=== PATIENT | female | born 1960 | race Caucasian/White ===

== ENCOUNTER 2017-08-31 09:31 | Emergency (ER) | payer MEDICARE, BC ==
[2017-08-31] MEDS ORDERED: HYDROmorphone 1 MG/ML Syringe IVPUSH ONE (10:20)
[2017-08-31] MEDS ORDERED: cefTRIAXone 1 GM in Sodium Chloride 0.9% 50 ML IV ONE (10:20)
--- NOTE | 2017-08-31 10:24 | EDM.PDOC ---
ED HPI GENERAL MEDICAL PROBLEM - General Chief Complaint: ENT Problem Stated Complaint: RIGHT SIDE FACE VERY SWOLLEN Time Seen by Provider: 08/31/17 10:11 Source of Information: Reports: Patient, RN Notes Reviewed History Limitations: Reports: No Limitations - History of Present Illness INITIAL COMMENTS - FREE TEXT/NARRATIVE: 57-year-old female presents emergency department today complaint of dental pain with facial swelling she states she broke a tooth a couple weeks ago however over the last 24 hours she's had fevers pain and swelling however no other symptoms Right Face Pain Score (Numeric/FACES): 4 - Related Data Allergies Allergy/AdvReac Type Severity Reaction Status Date / Time codeine Allergy Other Verified 01/07/16 10:35 hydralazine HCl Allergy Swelling Verified 01/07/16 10:35 [From Apresoline] Home Meds: Home Meds Aspirin 325 mg PO DAILY 12/02/14 [History] Cholecalciferol (Vitamin D3) [Vitamin D] 2 tab PO DAILY 12/02/14 [History] Lisinopril/Hydrochlorothiazide [Zestoretic 20-12.5 mg Tablet] 2 tab PO DAILY 03/13 [History] Magnesium Oxide [Magnesium] 400 mg PO DAILY 12/02/14 [History] Metoprolol Tartrate 12.5 mg PO BID 12/02/14 [History] Pravastatin [Pravachol] 10 mg PO BEDTIME 12/02/14 [History] Sertraline [Zoloft] 50 mg PO DAILY 12/02/14 [History] Triamcinolone Acetonide [Kenalog 0.1% Crm] 1 appful TOP BID 12/02/14 [History] Vitamin B Complex [B Complex] 1 tab PO DAILY 12/02/14 [History] Ibuprofen [Advil] 800 mg PO ASDIRECTED PRN 12/05/14 [History] Liraglutide [Victoza] 1 injection SUBCUT DAILY 03/11/15 [History] Omeprazole 20 mg PO DAILY 01/07/16 [History] Past Medical History Cardiovascular History: Reports: Hypertension Other Cardiovascular History: Palpatation [employer] History: Reports: Musculoskeletal History: Reports: Other (See Below) Other Musculoskeletal History: 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, Neurological History: Reports: CVA Endocrine/Metabolic History: Reports: Diabetes, Type II - Infectious Disease History Infectious Disease History: Reports: Chicken Pox - Past Surgical History Musculoskeletal Surgical History: Reports: Hip Replacement Social & Family History - Family History Cardiac: Reports: CAD, Hypertension, [place] Neurological: Reports: Cerebral Aneurysms, CVA Endocrine/Metabolic: Reports: Diabetes, type II Oncologic: Reports: Brain, Renal Other Oncologic Family History: Gleoblastoma - Tobacco Use Smoking Status *Q: Never Smoker - Caffeine Use Caffeine Use: Reports: Coffee, Soda, Tea - Recreational Drug Use Recreational Drug Use: No ED ROS ENT - Review of Systems Review Of Systems: See Below Constitutional: Reports: Fever, Chills HEENT: Reports: Dental Pain, Sinus Problem Respiratory: Reports: No Symptoms Cardiovascular: Reports: No Symptoms GI/Abdominal: Reports: No Symptoms : Reports: No Symptoms Musculoskeletal: Reports: No Symptoms Skin: Reports: No Symptoms ED EXAM, ENT - Physical Exam Exam: See Below Text/Narrative:: General: Female, not in any distress, alert and oriented x3 HEENT: head is swelling is appreciated over the right side of the face normocephalic, eyes pupils equal round reactive to light, sclera clear no conjunctivitis appreciated. Ears tympanic membranes clear and bailey landmarks and light reflex are present bilaterally canals are clear. Nose no septal deviation, nares are clear, no blood present. Mouth mucosa is moist and pink no erythema or exudate noted in soft palate, tongue is midline uvula is midline, fractured tooth is appreciated molar number #1. Neck: Supple no thyromegaly no tracheal deviation. Nodes: Cervical nodes subclavicular nodes nontender no palpable lymphadenopathy noted. Lungs: clear to auscultation bilaterally with symmetrical respirations, no adventitious noise appreciated. CV: Regular rate and rhythm S1 and S2 appreciated no murmurs rubs or gallops noted. Abdomen: Soft, nontender, no palpable masses or organomegaly appreciated, no distention no guarding bowel sounds are present, . Course - Vital Signs Last Recorded V/S: Last Vital Signs Temp 97.8 F 08/31/17 09:48 Pulse 81 08/31/17 11:43 Resp 14 08/31/17 09:48 BP 148/85 H 08/31/17 11:43 Pulse Ox 100 08/31/17 09:48 - Orders/Labs/Meds Orders: Active Orders 24 hr Category Date Time Status Peripheral IV Care [RC] . DIRECTED Care 08/31/17 10:20 Active Sodium Chloride 0.9% [Saline Flush] Med 08/31/17 10:20 Active 10 ml FLUSH ASDIRECTED PRN Peripheral IV Insertion Adult [OM.PC] Urgent Oth 08/31/17 10:17 Ordered Medication Orders Sodium Chloride (Saline Flush) 10 ml FLUSH ASDIRECTED PRN PRN Reason: Keep Vein Open Last Admin: 08/31/17 12:44 Dose: 10 ml Admin: 08/31/17 10:54 Dose: 10 ml Meds: Medications Generic Name Dose Route Start Last Admin Trade Name Freq PRN Reason Stop Dose Admin Sodium Chloride 10 ml 08/31/17 10:20 08/31/17 12:44 Saline Flush FLUSH 10 ml ASDIRECTED PRN Administration Keep Vein Open Discontinued Medications Generic Name Dose Route Start Last Admin Trade Name Freq PRN Reason Stop Dose Admin Hydromorphone HCl 1 mg 08/31/17 10:20 08/31/17 10:47 Dilaudid IVPUSH 08/31/17 10:21 1 mg ONETIME ONE Administration Ceftriaxone Sodium 1 gm/ 50 mls @ 100 mls/hr 08/31/17 10:20 08/31/17 10:47 Sodium Chloride IV 08/31/17 10:49 100 mls/hr ONETIME ONE Administration Labetalol HCl 20 mg 08/31/17 11:30 08/31/17 12:43 Normodyne IVPUSH 08/31/17 11:31 10 mg NOW ONE Administration Protocol Departure - Departure Time of Disposition: 13:21 Disposition: Admitted As Inpatient 64 Condition: Good Clinical Impression: Dental abscess, Hypertensive urgency - Discharge Information Referrals: Jo Ann Simons NP [Primary Care Provider] - Forms: ED Department Discharge - My Orders Last 24 Hours: My Active Orders 08/31/17 10:17 Peripheral IV Insertion Adult [OM.PC] Urgent 08/31/17 10:20 Peripheral IV Care [RC] . DIRECTED Sodium Chloride 0.9% [Saline Flush] 10 ml FLUSH ASDIRECTED PRN - Assessment/Plan Last 24 Hours: My Active Orders 08/31/17 10:17 Peripheral IV Insertion Adult [OM.PC] Urgent 08/31/17 10:20 Peripheral IV Care [RC] . DIRECTED Sodium Chloride 0.9% [Saline Flush] 10 ml FLUSH ASDIRECTED PRN Plan: Assessment Acuity = acute Site and laterality = hypertensive urgency complicated patient with dental abscess Etiology = unclear etiology Manifestations = none Location of injury = Home Lab values = none Plan Discussed case with hospitalist on-call they agreed to come and evaluate the patient in the emergency department for further evaluation Patient was in agreement with the plan all questions were answered, they were instructed to return to the emergency department or call for worsening symptoms. This note was dictated using [employer] voice recognition software please call with any questions.
[2017-08-31] MEDS: Sodium Chloride 0.9% 10 ML Syringe FLUSH PRN ×2 (10:54→12:44)
[2017-08-31] MEDS: Labetalol 20 MG/4 ML Syringe IVPUSH ONE ×2 (11:34→12:43)
--- NOTE | 2017-08-31 14:09 | PCM.CONS ---
H&P History of Present Illness - General Date of Service: 08/31/17 Source of Information: Patient, Family, Provider, RN Notes Reviewed History Limitations: Reports: No Limitations - History of Present Illness Initial Comments - Free Text/Narative: Ms. Beltran is a 57-year-old woman who I been asked to see by Officer for further recommendations concerning uncontrolled hypertension. She presented to the emergency department today because of significant pain in her upper jaw secondary to an infected tooth. She had a crown on the tooth that cracked off about a week ago and began to experience significant pain in that area last night. This morning noted that the right side of her face is significantly swollen consistent with underlying infection. She has had a previous problem with significant hypertension and has experienced a CVA with residual left- sided weakness. She has noted intermittent dull headaches over the past 2 months and when checked at home her blood pressure has been elevated. When she arrived in the emergency department blood pressure was significantly elevated with systolic pressure over 200 and a diastolic pressure 120. She is received medication and pressures have improved but still remain elevated when I saw her systolic pressure was 170 with a diastolic of 100. She denies any symptoms of chest pain or pressure and has not had shortness of breath or any new neurologic symptoms other than the intermittent dull headache. Right Face Pain Score (Numeric/FACES): 4 - Related Data Allergies/Adverse Reactions: Allergies Allergy/AdvReac Type Severity Reaction Status Date / Time codeine Allergy Other Verified 01/07/16 10:35 hydralazine HCl Allergy Swelling Verified 01/07/16 10:35 [From Apresoline] Home Medications: Home Meds Aspirin 325 mg PO DAILY 12/02/14 [History] Cholecalciferol (Vitamin D3) [Vitamin D] 2 tab PO DAILY 12/02/14 [History] Lisinopril/Hydrochlorothiazide [Zestoretic 20-12.5 mg Tablet] 2 tab PO DAILY 03/13 [History] Magnesium Oxide [Magnesium] 400 mg PO DAILY 12/02/14 [History] Metoprolol Tartrate 12.5 mg PO BID 12/02/14 [History] Pravastatin [Pravachol] 10 mg PO BEDTIME 12/02/14 [History] Sertraline [Zoloft] 50 mg PO DAILY 12/02/14 [History] Triamcinolone Acetonide [Kenalog 0.1% Crm] 1 appful TOP BID 12/02/14 [History] Vitamin B Complex [B Complex] 1 tab PO DAILY 12/02/14 [History] Ibuprofen [Advil] 800 mg PO ASDIRECTED PRN 12/05/14 [History] Liraglutide [Victoza] 1 injection SUBCUT DAILY 03/11/15 [History] Omeprazole 20 mg PO DAILY 01/07/16 [History] Past Medical History Cardiovascular History: Reports: Hypertension Other Cardiovascular History: Palpatation [employer] History: Reports: Musculoskeletal History: Reports: Other (See Below) Other Musculoskeletal History: 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, Neurological History: Reports: CVA Endocrine/Metabolic History: Reports: Diabetes, Type II - Infectious Disease History Infectious Disease History: Reports: Chicken Pox - Past Surgical History Musculoskeletal Surgical History: Reports: Hip Replacement Social & Family History - Family History Cardiac: Reports: CAD, Hypertension, [place] Neurological: Reports: Cerebral Aneurysms, CVA Endocrine/Metabolic: Reports: Diabetes, type II Oncologic: Reports: Brain, Renal Other Oncologic Family History: Gleoblastoma - Tobacco Use Smoking Status *Q: Never Smoker - Caffeine Use Caffeine Use: Reports: Coffee, Soda, Tea - Recreational Drug Use Recreational Drug Use: No H&P Review of Systems - Review of Systems: Review Of Systems: See Below General: Denies: Fever, Chills, Weakness HEENT: Reports: Headaches, Other (Dental infection and pain) Pulmonary: Reports: No Symptoms Cardiovascular: Reports: Palpitations. Denies: Chest Pain, Dyspnea on Exertion , Orthopnea, PND, Edema, Lightheadedness Gastrointestinal: Reports: No Symptoms Genitourinary: Reports: No Symptoms Musculoskeletal: Reports: No Symptoms Skin: Reports: No Symptoms Psychiatric: Reports: No Symptoms Neurological: Reports: Headache, Pre-Existing Deficit Hematologic/Lymphatic: Reports: No Symptoms Immunologic: Reports: No Symptoms Exam - Exam Exam: See Below - Vital Signs Vital Signs: Last Vital Signs Temp 97.8 F 08/31/17 09:48 Pulse 81 08/31/17 11:43 Resp 14 08/31/17 09:48 BP 177/93 H 08/31/17 13:57 Pulse Ox 100 08/31/17 09:48 Weight: 196 lb 6.91 oz - Exam General: Alert, Oriented, Cooperative, Mild Distress Neck: Supple, Trachea Midline, +2 Carotid Pulse wo Bruit Lungs: Clear to Auscultation, Normal Respiratory Effort Cardiovascular: Regular Rate, Regular Rhythm, Normal S1, Normal S2. No: Irregular Rhythm, Bradycardia, Tachycardia, Systolic Murmur, Diastolic Murmur GI/Abdominal Exam: Soft, Non-Tender, No Organomegaly, No Distention Extremities: Non-Tender, No Pedal Edema Skin: Warm, Dry Neuro Extensive - Mental Status: Alert, Normal Mood/Affect, Normal Cognition, Memory Intact Consult PN Assessment/Plan Procedures: Procedures CARDIOVASCULAR STRESS TEST (12/05/14) COMP SCREEN MAMMOGRAM ADD-ON (04/10/16) ECG/MONITORING AND ANALYSIS (10/13/14) EMERGENCY DEPT VISIT (01/07/16) HOT OR COLD PACKS THERAPY (03/30/14) HT MUSCLE IMAGE SPECT MULT (12/05/14) IMMUNIZATION ADMIN (03/11/15) MANUAL THERAPY 1/> REGIONS (02/22/16) NEUROMUSCULAR REEDUCATION (02/22/16) ORTHOTIC MGMT AND TRAINING (03/30/14) OT EVAL LOW COMPLEX 30 MIN (07/29/17) PT EVAL LOW COMPLEX 20 MIN (07/29/17) PT EVALUATION (01/26/16) RABIES IG HEAT TREATED (03/11/15) RABIES VACCINE IM (03/11/15) REMOTE 30 DAY ECG REV/REPORT (10/13/14) THER/PROPH/DIAG INJ SC/IM (03/11/15) THERAPEUTIC ACTIVITIES (08/26/17) THERAPEUTIC EXERCISES (08/26/17) ULTRASOUND THERAPY (02/22/16) (1) Dental abscess SNOMED Code(s): 425744665 Code(s): K04.7 - PERIAPICAL ABSCESS WITHOUT SINUS Current Visit: Yes (2) Hypertensive urgency SNOMED Code(s): 248345096 Code(s): I16.0 - HYPERTENSIVE URGENCY Current Visit: Yes Problem List Initiated/Reviewed/Updated: Yes My Orders Last 24 Hours: My Active Orders 08/31/17 14:03 Metoprolol Tartrate [Lopressor] 50 mg PO ONETIME ONE Plan: ASSESSMENT AND RECOMMENDATIONS UNCONTROLLED HYPERTENSION-history of blood pressure elevation for some time, previously controlled on current therapy. Now over the past 2 months is noted blood pressures have been trending upward often running in the 160-170 range systolic and in the 90s diastolic. She is currently on lisinopril 40 mg per day , hydrochlorothiazide 25 mg per day, and metoprolol 25 mg per day. Rather than starting a fourth medication I would favor increasing current dose of metoprolol , heart rate is in the range of 80-90 so I suspect that she should tolerate this well without significant bradycardia. -Metoprolol 50 mg by mouth now -Metoprolol 25 mg by mouth every 6 hours over the next 2 days -On September 03, change metoprolol dosing to 50 mg twice daily. -Monitor blood pressures at least twice a day and record for follow-up with primary care -Follow-up with primary care within 3-5 days -Continue current dosing of lisinopril and hydrochlorothiazide -Return to emergency department if blood pressures remain greater than 180 systolic or 100 diastolic ABSCESSED TOOTH-agree with current plan per Officer Requesting Provider: TO Date Consult Requested: 08/31/17 Reason for Consult: Uncontrolled hypertension Patient History Reviewed: Yes Notified Requestor: Yes
[2017-08-31] MEDS ORDERED: Metoprolol Tartrate 50 MG Tab PO ONE (14:10)
[2017-08-31 14:23] VITALS: BP 169/96
== END 2017-08-31 14:20 | disposition critical access hospital (66) ==
LOC: JP.ED 09:31
DX: I16.0 Hypertensive urgency (principal); K04.7 Periapical abscess without sinus; E11.9 Type 2 diabetes mellitus without complications; Z88.5 Allergy status to narcotic agent; Z88.8 Allergy status to other drugs, medicaments and biological substances; I10 Essential (primary) hypertension
CPT/HCPCS: 96365; 96375; 99284; A9270; J0696; J1170; J7050

== ENCOUNTER 2017-12-24 10:05 | Day surgery (SDC) | payer MEDICARE, BC ==
[2017-12-24] MEDS ORDERED: Lactated Ringers 1,000 ML IV SCH (10:30)
[2017-12-24] MEDS ORDERED: Midazolam 1 MG/ML 2 ML SDV ONE (11:50)
[2017-12-24] MEDS ORDERED: fentaNYL 100 MCG/2 ML SDV ONE (11:50)
[2017-12-24] MEDS ORDERED: Propofol 200 MG/20 ML SDV ONE (11:50)
[2017-12-24 14:07] VITALS: BP 138/83
--- NOTE | 2017-12-25 09:38 | OR ---
DATE OF PROCEDURE: 12/24/2017 PREOPERATIVE DIAGNOSIS: Colon cancer screening. POSTOPERATIVE DIAGNOSIS: Diverticulosis. PROCEDURE: Colonoscopy to the cecum. SURGEON: Cecil Mcdonald MD. MANAGER LANDSCAPE: Lucía Neil MS-3. ANESTHESIA: IV anesthesia with monitored anesthesia care. INDICATION: This 57-year-old white female is referred for a colonoscopy for colon cancer screening. She has never had a colonoscopic exam. I counseled her for the procedure, including risks and alternatives, and she gave her informed consent to proceed. DESCRIPTION OF PROCEDURE: The patient was placed in the left lateral decubitus position. IV anesthesia was administered by the Anesthesia Service. Time-out was held. A rectal exam was performed, which was unremarkable. The flexible video Olympus colonoscope was introduced through her anus, up her rectum, and out her colon all the way to the cecum. En route, we saw a few scattered left-sided diverticula. There was no bleeding or inflammation associated with any of them. Once the cecum was reached, the scope was slowly withdrawn, examining the mucosa throughout. No additional mucosal abnormalities were noted. The scope was retroflexed in the rectum with the distal rectum appearing unremarkable. The scope was straightened and removed. She tolerated the procedure well. Cecil Mcdonald MD /[id number]
== END 2017-12-24 14:20 | disposition home or self-care (01) ==
LOC: JP.SDS 10:05
PROVIDERS: ATTEND Surgery
DX: Z12.11 Encounter for screening for malignant neoplasm of colon (principal); K57.30 Diverticulosis of large intestine without perforation or abscess without bleeding; I10 Essential (primary) hypertension; E78.5 Hyperlipidemia, unspecified; E11.9 Type 2 diabetes mellitus without complications; F17.200 Nicotine dependence, unspecified, uncomplicated; Z88.1 Allergy status to other antibiotic agents; Z88.8 Allergy status to other drugs, medicaments and biological substances
CPT/HCPCS: G0121; J2250; J2704; J3010; J7120

== ENCOUNTER 2020-10-25 18:49 | Emergency (ER) | payer MEDICARE ==
--- NOTE | 2020-10-25 19:29 | EDM.PDOC ---
ED HPI GENERAL MEDICAL PROBLEM - General Chief Complaint: Respiratory Problem Stated Complaint: SOB,FEVER Time Seen by Provider: 10/25/20 19:15 Source of Information: Reports: Patient, Family, RN Notes Reviewed History Limitations: Reports: No Limitations - History of Present Illness INITIAL COMMENTS - FREE TEXT/NARRATIVE: 60-year-old female presents emergency department a complaint of shortness of breath and cough as well as low-grade fevers she recently returned from [place] and has been feeling ill for the last 3 days. Concerned about Covid no known exposures - Related Data Allergies Allergy/AdvReac Type Severity Reaction Status Date / Time atorvastatin Allergy Cannot Verified 10/25/20 18:59 Remember codeine Allergy Other Verified 10/25/20 18:59 erythromycin base Allergy Joint Pain Verified 10/25/20 18:59 [From Staticin] ethyl alcohol [From Staticin] Allergy Joint Pain Verified 10/25/20 18:59 hydralazine HCl Allergy Swelling Verified 10/25/20 18:59 [From Apresoline] pravastatin Allergy Joint Pain Verified 10/25/20 18:59 Home Meds: Home Meds Aspirin 325 mg PO DAILY 12/02/14 [History] Cholecalciferol (Vitamin D3) [Vitamin D] 4,000 unit PO DAILY 12/02/14 [History] Magnesium Oxide [Magnesium] 400 mg PO DAILY 12/02/14 [History] Metoprolol Tartrate 50 mg PO BID 12/02/14 [History] Sertraline [Zoloft] 50 mg PO DAILY 12/02/14 [History] Triamcinolone Acetonide [Kenalog 0.1% Crm] 1 appful TOP BID PRN 12/02/14 [History] Vitamin B Complex [B Complex] 1 tab PO DAILY 12/02/14 [History] Rosuvastatin [Crestor] 5 mg PO DAILY 12/23/17 [History] amLODIPine [Norvasc] 5 mg PO DAILY 12/23/17 [History] metFORMIN [Glucophage XR] 1,000 mg PO BID 12/23/17 [History] Acetaminophen [Tylenol Extra Strength] 1,000 mg PO Q6H PRN 09/05/20 [History] Calcium Carbonate/Vitamin D3 [Calcium 500 + Vit D 400] 1 tab PO DAILY 09/05/20 [History] Insulin Aspart [NovoLOG] 8 units SQ DAILY 09/05/20 [History] Albuterol Sulfate [Albuterol Sulfate Hfa] 1 puff IH ASDIRECTED 10/25/20 [History] lisinopriL [Lisinopril] 40 mg PO DAILY 10/25/20 [History] Past Medical History HEENT History: Reports: Impaired Vision Cardiovascular History: Reports: High Cholesterol, Hypertension Other Cardiovascular History: Palpatation LABEL PINKER History: Reports: , Spontaneous Musculoskeletal History: Reports: Fracture, Other (See Below) Other Musculoskeletal History: 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 left humerus FX 08/12/20 Neurological History: Reports: CVA Psychiatric History: Reports: Depression Endocrine/Metabolic History: Reports: Diabetes, Type II, Obesity/BMI 30+ Hematologic History: Reports: Blood Transfusion(s) - Infectious Disease History Infectious Disease History: Reports: Chicken Pox, Mumps, Other (See Below) Other Infectious Disease History: mumps - Past Surgical History Head Surgeries/Procedures: Reports: None HEENT Surgical History: Reports: Laser Surgery Cardiovascular Surgical History: Reports: Other (See Below) Other Cardiovascular Surgeries/Procedures: Angiogram Endocrine Surgical History: Reports: None Neurological Surgical History: Reports: None Musculoskeletal Surgical History: Reports: Hip Replacement, Shoulder Surgery Other Musculoskeletal Surgeries/Procedures:: Total R. Hip Dermatological Surgical History: Reports: None Social & Family History - Family History HEENT: Reports: Glaucoma Cardiac: Reports: Aneurysm, CAD, Heart Failure, High Cholesterol, Hypertension, CA Musculoskeletal: Reports: Arthritis, Osteoarthritis Neurological: Reports: Cerebral Aneurysms, CVA Endocrine/Metabolic: Reports: Diabetes, type II, Hypothyroidism, Obesity/MBI 30+ Oncologic: Reports: Brain, Colon, Prostate, Renal Other Oncologic Family History: Gleoblastoma - Tobacco Use Tobacco Use Status *Q: Former Tobacco User Used Tobacco, but Quit: Yes Month/Year Tobacco Last Used: 2009 Second Hand Smoke Exposure: No - Caffeine Use Caffeine Use: Reports: Soda - Recreational Drug Use Recreational Drug Use: No ED ROS GENERAL - Review of Systems Review Of Systems: See Below Constitutional: Reports: Fever, Chills HEENT: Reports: No Symptoms Respiratory: Reports: Shortness of Breath, Cough. Denies: Sputum Cardiovascular: Reports: Dyspnea on Exertion GI/Abdominal: Reports: No Symptoms : Reports: No Symptoms ED EXAM, GENERAL - Physical Exam Exam: See Below Exam Limited By: No Limitations General Appearance: Alert, WD/WN, No Apparent Distress Respiratory/Chest: No Respiratory Distress, Lungs Clear, Normal Breath Sounds, No Accessory Muscle Use, Chest Non-Tender Cardiovascular: Regular Rate, Rhythm, No Murmur GI/Abdominal: Soft, Non-Tender Course - Vital Signs Last Recorded V/S: Last Vital Signs Temp 98.5 F 10/25/20 19:03 Pulse 66 10/25/20 20:19 Resp 18 10/25/20 19:03 BP 141/74 H 10/25/20 20:19 Pulse Ox 96 10/25/20 19:30 - Orders/Labs/Meds Orders: Active Orders 24 hr Category Date Time Status Nurse Communication: Isolation [RC] ASDIRECTED Care 10/25/20 19:27 Active Chest 1V Frontal [CR] Stat Exams 10/25/20 19:27 Taken Isolation [COMM] Stat Oth 10/25/20 19:26 Ordered Labs: Laboratory Tests 10/25/20 10/25/20 10/25/20 Range/Units 19:10 19:42 19:42 WBC 12.3 H (4.5-11.0) K/uL RBC 4.05 (3.30-5.50) M/uL Hgb 12.5 (12.0-15.0) g/dL Hct 36.3 (36.0-48.0) % MCV 90 (80-98) fL MCH 31 (27-31) pg MCHC 34 (32-36) % Plt Count 319 (150-400) K/uL Neut % (Auto) 65 (36-66) % Lymph % (Auto) 25 (24-44) % [place] % (Auto) 7 H (2-6) % Eos % (Auto) 3 (2-4) % Baso % (Auto) 0 (0-1) % PT (9.5-12.0) sec INR (0.80-1.20) Sodium (140-148) mmol/L Potassium (3.6-5.2) mmol/L Chloride (100-108) mmol/L Carbon Dioxide (21-32) mmol/L Anion Gap (5.0-14.0) mmol/L BUN (7-18) mg/dL Creatinine (0.6-1.0) mg/dL Est Cr Clr Drug Dosing mL/min Estimated GFR (MDRD) (>60) Glucose (74-106) mg/dL Lactic Acid (0.4-2.0) mmol/L Calcium (8.5-10.1) mg/dL Ferritin 64 (8-388) ng/ml Total Bilirubin (0.2-1.0) mg/dL Direct Bilirubin (0.0-0.2) mg/dL Indirect Bilirubin AST (15-37) U/L ALT (12-78) U/L Alkaline Phosphatase (46-116) U/L Lactate Dehydrogenase (82-234) U/L C-Reactive Protein (0.0-0.3) mg/dL Total Protein (6.4-8.2) g/dL Albumin (3.4-5.0) g/dL Globulin (2.3-3.5) g/dL Albumin/Globulin Ratio (1.2-2.2) Procalcitonin ng/mL Influenza Type A RNA Negative (NEGATIVE) RSV RNA (INAAT) Negative (NEGATIVE) Influenza Type B RNA Negative (NEGATIVE) SARS-CoV-2 RNA (GRETCHEN) Negative (NEGATIVE) 10/25/20 10/25/20 10/25/20 Range/Units 19:42 19:42 19:42 WBC (4.5-11.0) K/uL RBC (3.30-5.50) M/uL Hgb (12.0-15.0) g/dL Hct (36.0-48.0) % MCV (80-98) fL MCH (27-31) pg MCHC (32-36) % Plt Count (150-400) K/uL Neut % (Auto) (36-66) % Lymph % (Auto) (24-44) % [place] % (Auto) (2-6) % Eos % (Auto) (2-4) % Baso % (Auto) (0-1) % PT (9.5-12.0) sec INR (0.80-1.20) Sodium 136 L (140-148) mmol/L Potassium 4.3 (3.6-5.2) mmol/L Chloride 98 L (100-108) mmol/L Carbon Dioxide 26 (21-32) mmol/L Anion Gap 16.3 H (5.0-14.0) mmol/L BUN 13 (7-18) mg/dL Creatinine 1.3 H (0.6-1.0) mg/dL Est Cr Clr Drug Dosing 40.38 mL/min Estimated GFR (MDRD) 42 L (>60) Glucose 334 H (74-106) mg/dL Lactic Acid 2.3 H (0.4-2.0) mmol/L Calcium 9.3 (8.5-10.1) mg/dL Ferritin (8-388) ng/ml Total Bilirubin 1.3 H (0.2-1.0) mg/dL Direct Bilirubin 0.22 H (0.0-0.2) mg/dL Indirect Bilirubin 1.08 AST 16 (15-37) U/L ALT 34 (12-78) U/L Alkaline Phosphatase 79 (46-116) U/L Lactate Dehydrogenase 190 (82-234) U/L C-Reactive Protein 1.33 H (0.0-0.3) mg/dL Total Protein 7.4 (6.4-8.2) g/dL Albumin 3.7 (3.4-5.0) g/dL Globulin 3.7 H (2.3-3.5) g/dL Albumin/Globulin Ratio 1.0 L (1.2-2.2) Procalcitonin < 0.05 ng/mL Influenza Type A RNA (NEGATIVE) RSV RNA (INAAT) (NEGATIVE) Influenza Type B RNA (NEGATIVE) SARS-CoV-2 RNA (GRETCHEN) (NEGATIVE) 10/25/20 Range/Units 19:42 WBC (4.5-11.0) K/uL RBC (3.30-5.50) M/uL Hgb (12.0-15.0) g/dL Hct (36.0-48.0) % MCV (80-98) fL MCH (27-31) pg MCHC (32-36) % Plt Count (150-400) K/uL Neut % (Auto) (36-66) % Lymph % (Auto) (24-44) % [place] % (Auto) (2-6) % Eos % (Auto) (2-4) % Baso % (Auto) (0-1) % PT 10.4 (9.5-12.0) sec INR 0.95 (0.80-1.20) Sodium (140-148) mmol/L Potassium (3.6-5.2) mmol/L Chloride (100-108) mmol/L Carbon Dioxide (21-32) mmol/L Anion Gap (5.0-14.0) mmol/L BUN (7-18) mg/dL Creatinine (0.6-1.0) mg/dL Est Cr Clr Drug Dosing mL/min Estimated GFR (MDRD) (>60) Glucose (74-106) mg/dL Lactic Acid (0.4-2.0) mmol/L Calcium (8.5-10.1) mg/dL Ferritin (8-388) ng/ml Total Bilirubin (0.2-1.0) mg/dL Direct Bilirubin (0.0-0.2) mg/dL Indirect Bilirubin AST (15-37) U/L ALT (12-78) U/L Alkaline Phosphatase (46-116) U/L Lactate Dehydrogenase (82-234) U/L C-Reactive Protein (0.0-0.3) mg/dL Total Protein (6.4-8.2) g/dL Albumin (3.4-5.0) g/dL Globulin (2.3-3.5) g/dL Albumin/Globulin Ratio (1.2-2.2) Procalcitonin ng/mL Influenza Type A RNA (NEGATIVE) RSV RNA (INAAT) (NEGATIVE) Influenza Type B RNA (NEGATIVE) SARS-CoV-2 RNA (GRETCHEN) (NEGATIVE) Departure - Departure Time of Disposition: 21:32 Disposition: Home, Self-Care 01 Condition: Fair Clinical Impression: Viral syndrome - Discharge Information Instructions: Upper Respiratory Infection, Adult, [id number] Referrals: PCP,None [Primary Care Provider] - Forms: ED Department Discharge Additional Instructions: Continue symptomatic care try the Tessalon Perles to help as a cough suppressant, please followup with your primary care provider in 3-5 days if not better, please call return to the emergency department with worsening of symptoms. Sepsis Event Note (ED) - Evaluation Sepsis Screening Result: No Definite Risk - Focused Exam Vital Signs: Vital Signs Temp Pulse Resp BP Pulse Ox 10/25/20 20:19 66 141/74 H 10/25/20 19:30 71 161/49 H 96 10/25/20 19:03 98.5 F 85 18 192/89 H 97 10/25/20 19:01 98.5 F 85 18 192/89 H 97 - My Orders Last 24 Hours: My Active Orders 10/25/20 19:26 Isolation [COMM] Stat 10/25/20 19:27 Nurse Communication: Isolation [RC] ASDIRECTED Chest 1V Frontal [CR] Stat - Assessment/Plan Last 24 Hours: My Active Orders 10/25/20 19:26 Isolation [COMM] Stat 10/25/20 19:27 Nurse Communication: Isolation [RC] ASDIRECTED Chest 1V Frontal [CR] Stat Plan: Assessment Acuity = acute Site and laterality = viral syndrome Etiology = unknown Manifestations = cough Location of injury = Home Lab values = WBC elevated 12.3 consistent leukocytosis, sodium low at 136 consistent hyponatremia creatinine elevated 1.3 consistent chronic renal failure stage G3 B glucose elevated 334 consistent with hyperglycemia lactic acid sl ightly elevated 2.3 consistent with lactic acidosis total bilirubin elevated 1.3 consistent with hyperbilirubinemia Covid RSV and influenza are all negative chest x-ray shows no acute process patient read radiologist pending Plan I did review lab work chest x-ray results with her we will try Tessalon Perles 200 mg p.o. 3 times daily as needed follow-up with her primary care in the next 3 to 5 days if not better This note was dictated using [employer] voice recognition software please call with any questions on syntax or grammar.
[2020-10-25 20:20] VITALS: BP 141/74; PULSE 66
[2020-10-25 20:35] LABS: CORONAVIRUS COVID-19 NAA NEGATIVE (NEGATIVE)
--- NOTE | 2020-10-26 08:46 | CR ---
CHEST: Portable 10/25/2020 at 7:54 PM CLINICAL HISTORY:Respiratory failure COMPARISON:None FINDINGS: The heart size, pulmonary vascularity and hilar structures are normal. No infiltrate effusion or pneumothorax is seen. There is a previous fracture of the left proximal humerus IMPRESSION: No acute cardiopulmonary process.
== END 2020-10-25 21:38 | disposition home or self-care (01) ==
LOC: JP.ED 18:49
DX: B34.9 Viral infection, unspecified (principal); E78.00 Pure hypercholesterolemia, unspecified; I10 Essential (primary) hypertension; E11.9 Type 2 diabetes mellitus without complications; E66.9 Obesity, unspecified; Z68.35 Body mass index [BMI] 35.0-35.9, adult; Z87.891 Personal history of nicotine dependence; Z88.8 Allergy status to other drugs, medicaments and biological substances; Z88.5 Allergy status to narcotic agent; Z88.1 Allergy status to other antibiotic agents; Z79.82 Long term (current) use of aspirin; Z79.4 Long term (current) use of insulin; Z79.899 Other long term (current) drug therapy; Z20.822 Contact with and (suspected) exposure to COVID-19
CPT/HCPCS: 0241U; 36415; 71045; 71045-26; 80048; 80076; 82728; 83605; 83615; 84145; 85025; 85610; 86140; 99285-25

== ENCOUNTER 2023-04-23 12:11 | Inpatient (IN) | payer MEDICARE ==
[2023-04-23] MEDS ORDERED: Sodium Chloride 0.9% 10 ML Syringe FLUSH PRN (12:42)
[2023-04-23] MEDS ORDERED: Ondansetron 4 MG/2 ML SDV IVPUSH PRN (12:42)
[2023-04-23] MEDS ORDERED: Glucagon,Human Recombinant 1 MG Vial IM PRN (12:49)
[2023-04-23] MEDS ORDERED: 50% Dextrose in Water 50 ML Syringe IVPUSH PRN (12:49)
[2023-04-23 13:00] LABS: BASOPHILS ABSOLUTE AUTO 0.03 K/uL (0.00-0.10); BASOPHILS PERCENT AUTO 0.3 % (0.1-1.3); EOSINOPHILS ABSOLUTE AUTO 0.22 K/uL (0.00-0.40); EOSINOPHILS PERCENT AUTO 2.3 % (0.0-5.4); HEMATOCRIT 38.6 % (34.3-46.0); HEMOGLOBIN 13.6 g/dL (11.2-15.5); IMMATURE GRAN ABSOLUTE AUTO 0.03 K/uL (0.00-0.23); IMMATURE GRAN PERCENT AUTO 0.3 % (0.0-0.7); LYMPHOCYTES ABSOLUTE AUTO 3.63 K/uL (0.8-3.3); MEAN CORPUSCULAR HEMOGLOBIN 30.8 pg (31.6-35.5); MEAN CORPUSCULAR HGB CONC 35.2 g/dL (31.6-35.5); MEAN CORPUSCULAR VOLUME 87.3 fL (81.4-99.0); MONOCYTES ABSOLUTE AUTO 0.57 K/uL (0.20-0.90); NEUTROPHILS ABSOLUTE AUTO 5.07 K/uL (1.0-7.6); NEUTROPHILS PERCENT AUTO 53.1 % (40.0-78.1); PLATELET COUNT,PLT 270 K/uL (130-375); RED BLOOD CELL COUNT 4.42 M/uL (3.77-5.24); WHITE BLOOD CELL COUNT,WBC 9.6 K/uL (3.2-11.0)
[2023-04-23 13:37] LABS: PROTHROMBIN TIME 10.2 sec (9.2-10.6)
[2023-04-23 13:43] LABS: ALANINE AMINOTRANSFERASE,ALT 42 U/L (12-78); ALBUMIN 3.5 g/dL (3.4-5.0); ALKALINE PHOSPHATASE 56 U/L (46-116); ANION GAP 10.2 mmol/L (5.0-14.0); ASPARTATE AMNIOTRANSFERASE,AST 32 U/L (15-37); BILIRUBIN TOTAL 1.4 mg/dL (0.2-1.0); BLOOD UREA NITROGEN,BUN 10 mg/dL (7-18); CARBON DIOXIDE,CO2 27 mmol/L (21-32); CHLORIDE,CL 103 mmol/L (100-108); ESTIMATED GFR 63 mL/min (>60); GLUCOSE RANDOM 96 mg/dL (74-106); POTASSIUM,K 3.9 mmol/L (3.6-5.2); SODIUM,NA 140 mmol/L (140-148)
[2023-04-23 13:44] LABS: MAGNESIUM 1.6 mg/dL (1.8-2.4); PHOSPHORUS 3.8 mg/dL (2.5-4.9)
[2023-04-23] MEDS: Acetaminophen 325 MG Tab PO SCH ×2 (14:07→22:29)
[2023-04-23] MEDS: Lactated Ringers 1,000 ML IV SCH ×2 (14:07→22:20)
[2023-04-23] MEDS: Piperacillin/Tazobactam/Dext 3.375 GM in Premix Bag 1 BAG IV SCH ×2 (14:09→20:14)
[2023-04-23] MEDS ORDERED: Magnesium Sulfate/Water 2 GM in Premix Bag 1 BAG IV ONE (15:00)
[2023-04-23] MEDS ORDERED: Enoxaparin 40 MG/0.4 ML Syringe SUBCUT ONE (16:00)
[2023-04-23] MEDS ORDERED: Glimepiride 2 MG Tab PO SCH (17:00)
[2023-04-23] MEDS: Insulin Lispro 100 Unit/ML 3 ML KwikPen SUBCUT SCH ×2 (17:35→22:27)
[2023-04-23] MEDS: Metoprolol Tartrate 50 MG Tab PO SCH (20:11)
[2023-04-24] MEDS: Piperacillin/Tazobactam/Dext 3.375 GM in Premix Bag 1 BAG IV SCH ×3 (01:31→20:33)
[2023-04-24 04:38] LABS: HEMATOCRIT 34.4 % (34.3-46.0); MEAN CORPUSCULAR HEMOGLOBIN 30.8 pg (31.6-35.5); MEAN CORPUSCULAR HGB CONC 34.9 g/dL (31.6-35.5); MEAN CORPUSCULAR VOLUME 88.4 fL (81.4-99.0); RED BLOOD CELL COUNT 3.89 M/uL (3.77-5.24); WHITE BLOOD CELL COUNT,WBC 8.2 K/uL (3.2-11.0)
[2023-04-24 05:04] LABS: ALANINE AMINOTRANSFERASE,ALT 36 U/L (12-78); ALBUMIN 3.1 g/dL (3.4-5.0); ALKALINE PHOSPHATASE 46 U/L (46-116); ASPARTATE AMNIOTRANSFERASE,AST 28 U/L (15-37); BILIRUBIN TOTAL 1.4 mg/dL (0.2-1.0); BLOOD UREA NITROGEN,BUN 8 mg/dL (7-18); CALCIUM 8.8 mg/dL (8.5-10.1); CARBON DIOXIDE,CO2 27 mmol/L (21-32); CHLORIDE,CL 105 mmol/L (100-108); CREATININE 1.1 mg/dL (0.6-1.0); EST CRCL DRUG DOSING (CG) 46.49 mL/min; ESTIMATED GFR 56 mL/min (>60); GLUCOSE RANDOM 110 mg/dL (74-106); POTASSIUM,K 3.5 mmol/L (3.6-5.2); PROTEIN TOTAL,TP 6.2 g/dL (6.4-8.2); SODIUM,NA 143 mmol/L (140-148)
[2023-04-24 05:13] LABS: ANION GAP 14.5 mmol/L (5.0-14.0); MAGNESIUM 2.1 mg/dL (1.8-2.4); PHOSPHORUS 4.3 mg/dL (2.5-4.9)
[2023-04-24] MEDS ORDERED: Indocyanine Green 25 MG SDV IV ONE ×2 (06:00→07:30)
[2023-04-24] MEDS ORDERED: Bupivacaine 0.5%/EPINEPHrine 1:200,000 50 ML MDV ONE (06:47)
[2023-04-24] MEDS: Lactated Ringers 1,000 ML IV SCH ×2 (07:10→23:11)
[2023-04-24] MEDS: Acetaminophen 325 MG Tab PO SCH ×3 (07:29→21:21)
[2023-04-24] MEDS: Metoprolol Tartrate 50 MG Tab PO SCH (08:19)
[2023-04-24] MEDS: Potassium Chloride 10 MEQ in Premix Bag 1 BAG IV SCH ×2 (08:23→10:46)
[2023-04-24] MEDS ORDERED: Glimepiride 2 MG Tab PO SCH (09:00)
[2023-04-24] MEDS ORDERED: fentaNYL 250 MCG/5 ML SDV ONE (11:09)
[2023-04-24] MEDS ORDERED: Propofol 200 MG/20 ML SDV ONE (11:10)
[2023-04-24] MEDS ORDERED: Ondansetron 4 MG/2 ML SDV ONE (11:10)
[2023-04-24] MEDS ORDERED: Neostigmine Methylsulfate 1 MG/ML 5 ML Syringe ONE (11:10)
[2023-04-24] MEDS ORDERED: Rocuronium 50 MG/5 ML Vial ONE ×2 (11:10→14:15)
[2023-04-24] MEDS ORDERED: Dexamethasone 4 MG/ML SDV ONE (11:10)
[2023-04-24] MEDS ORDERED: Glycopyrrolate 0.2 MG/ML 5 ML MDV ONE (11:10)
[2023-04-24] MEDS: Insulin Lispro 100 Unit/ML 3 ML KwikPen SUBCUT SCH ×3 (12:23→21:22)
[2023-04-24] MEDS ORDERED: Lactated Ringers 1,000 ML ONE ×2 (13:22→15:35)
[2023-04-24 16:24] LABS: HEMATOCRIT 31.4 % (34.3-46.0); HEMOGLOBIN 10.9 g/dL (11.2-15.5); MEAN CORPUSCULAR HEMOGLOBIN 31.2 pg (31.6-35.5); MEAN CORPUSCULAR HGB CONC 34.7 g/dL (31.6-35.5); RED BLOOD CELL COUNT 3.49 M/uL (3.77-5.24); WHITE BLOOD CELL COUNT,WBC 13.5 K/uL (3.2-11.0)
[2023-04-24 16:41] LABS: INR 1.1
[2023-04-24 16:45] LABS: ALANINE AMINOTRANSFERASE,ALT 57 U/L (12-78); ALBUMIN 2.9 g/dL (3.4-5.0); ALKALINE PHOSPHATASE 45 U/L (46-116); ANION GAP 14.6 mmol/L (5.0-14.0); ASPARTATE AMNIOTRANSFERASE,AST 60 U/L (15-37); BILIRUBIN TOTAL 1.5 mg/dL (0.2-1.0); BLOOD UREA NITROGEN,BUN 6 mg/dL (7-18); CALCIUM 8.3 mg/dL (8.5-10.1); CARBON DIOXIDE,CO2 25 mmol/L (21-32); CHLORIDE,CL 103 mmol/L (100-108); CREATININE 1.3 mg/dL (0.6-1.0); EST CRCL DRUG DOSING (CG) 39.34 mL/min; ESTIMATED GFR 46 mL/min (>60); GLUCOSE RANDOM 326 mg/dL (74-106); MAGNESIUM 1.7 mg/dL (1.8-2.4); PHOSPHORUS 3.9 mg/dL (2.5-4.9); POTASSIUM,K 4.6 mmol/L (3.6-5.2); PROTEIN TOTAL,TP 5.9 g/dL (6.4-8.2); SODIUM,NA 138 mmol/L (140-148)
[2023-04-24] MEDS ORDERED: Magnesium Sulfate/Water 2 GM in Premix Bag 1 BAG IV ONE (17:15)
[2023-04-24] MEDS: oxyCODONE 5 MG Tab PO PRN ×2 (17:52→21:34)
[2023-04-24] MEDS: Sertraline 50 MG Tab PO SCH (17:53)
[2023-04-24] MEDS: Pravastatin 20 MG Tab PO SCH (17:55)
[2023-04-25] MEDS: Insulin Lispro 100 Unit/ML 3 ML KwikPen SUBCUT SCH ×6 (01:32→22:04)
[2023-04-25] MEDS: oxyCODONE 5 MG Tab PO PRN ×4 (04:49→21:22)
[2023-04-25 05:07] LABS: HEMATOCRIT 27.3 % (34.3-46.0); HEMOGLOBIN 9.5 g/dL (11.2-15.5); MEAN CORPUSCULAR HEMOGLOBIN 31.5 pg (31.6-35.5); MEAN CORPUSCULAR HGB CONC 34.8 g/dL (31.6-35.5); MEAN CORPUSCULAR VOLUME 90.4 fL (81.4-99.0); RED BLOOD CELL COUNT 3.02 M/uL (3.77-5.24); WHITE BLOOD CELL COUNT,WBC 16.7 K/uL (3.2-11.0)
[2023-04-25 05:24] LABS: ALANINE AMINOTRANSFERASE,ALT 73 U/L (12-78); ALKALINE PHOSPHATASE 42 U/L (46-116); ASPARTATE AMNIOTRANSFERASE,AST 79 U/L (15-37); BILIRUBIN TOTAL 1.2 mg/dL (0.2-1.0); BLOOD UREA NITROGEN,BUN 9 mg/dL (7-18); CALCIUM 8.4 mg/dL (8.5-10.1); CARBON DIOXIDE,CO2 28 mmol/L (21-32); CHLORIDE,CL 103 mmol/L (100-108); CREATININE 1.3 mg/dL (0.6-1.0); EST CRCL DRUG DOSING (CG) 39.34 mL/min; ESTIMATED GFR 46 mL/min (>60); GLUCOSE RANDOM 156 mg/dL (74-106); MAGNESIUM 2.2 mg/dL (1.8-2.4); PHOSPHORUS 4.3 mg/dL (2.5-4.9); POTASSIUM,K 4.4 mmol/L (3.6-5.2); SODIUM,NA 138 mmol/L (140-148)
[2023-04-25] MEDS: Acetaminophen 325 MG Tab PO SCH ×3 (05:56→21:21)
[2023-04-25 06:07] LABS: ANION GAP 11.4 mmol/L (5.0-14.0)
[2023-04-25] MEDS: Lactated Ringers 1,000 ML IV SCH ×2 (07:01→18:04)
[2023-04-25] MEDS: Metoprolol Tartrate 50 MG Tab PO SCH ×2 (08:02→21:23)
[2023-04-25] MEDS: Pravastatin 20 MG Tab PO SCH (08:04)
[2023-04-25] MEDS: Sertraline 50 MG Tab PO SCH (08:08)
[2023-04-25 14:59] LABS: HEMOGLOBIN 9.2 g/dL (11.2-15.5); MEAN CORPUSCULAR HEMOGLOBIN 31.1 pg (31.6-35.5); MEAN CORPUSCULAR HGB CONC 34.1 g/dL (31.6-35.5); MEAN CORPUSCULAR VOLUME 91.2 fL (81.4-99.0); RED BLOOD CELL COUNT 2.96 M/uL (3.77-5.24); WHITE BLOOD CELL COUNT,WBC 17.3 K/uL (3.2-11.0)
[2023-04-25 15:20] LABS: ALANINE AMINOTRANSFERASE,ALT 70 U/L (12-78); ALBUMIN 3.1 g/dL (3.4-5.0); ALKALINE PHOSPHATASE 43 U/L (46-116); ASPARTATE AMNIOTRANSFERASE,AST 74 U/L (15-37); BILIRUBIN TOTAL 1.2 mg/dL (0.2-1.0); BLOOD UREA NITROGEN,BUN 10 mg/dL (7-18); CALCIUM 8.4 mg/dL (8.5-10.1); CARBON DIOXIDE,CO2 30 mmol/L (21-32); CHLORIDE,CL 101 mmol/L (100-108); CREATININE 1.4 mg/dL (0.6-1.0); EST CRCL DRUG DOSING (CG) 36.53 mL/min; ESTIMATED GFR 42 mL/min (>60); GLUCOSE RANDOM 193 mg/dL (74-106); PROTEIN TOTAL,TP 6.1 g/dL (6.4-8.2); SODIUM,NA 138 mmol/L (140-148)
[2023-04-25] MEDS ORDERED: Piperacillin/Tazobactam 3.375 GM in Sodium Chloride 0.9% 50 ML IV SCH (17:15)
[2023-04-25] MEDS: Piperacillin/Tazobactam/Dext 3.375 GM in Premix Bag 1 BAG IV SCH (18:05)
[2023-04-26] MEDS: Piperacillin/Tazobactam/Dext 3.375 GM in Premix Bag 1 BAG IV SCH ×4 (00:56→16:52)
[2023-04-26] MEDS: oxyCODONE 5 MG Tab PO PRN ×3 (03:20→21:29)
[2023-04-26 04:31] LABS: HEMATOCRIT 24.8 % (34.3-46.0); HEMOGLOBIN 8.5 g/dL (11.2-15.5); MEAN CORPUSCULAR HEMOGLOBIN 31.4 pg (31.6-35.5); MEAN CORPUSCULAR HGB CONC 34.3 g/dL (31.6-35.5); MEAN CORPUSCULAR VOLUME 91.5 fL (81.4-99.0); RED BLOOD CELL COUNT 2.71 M/uL (3.77-5.24); WHITE BLOOD CELL COUNT,WBC 12.2 K/uL (3.2-11.0)
[2023-04-26 05:04] LABS: ALANINE AMINOTRANSFERASE,ALT 61 U/L (12-78); ALBUMIN 2.9 g/dL (3.4-5.0); ALKALINE PHOSPHATASE 40 U/L (46-116); ANION GAP 7.7 mmol/L (5.0-14.0); ASPARTATE AMNIOTRANSFERASE,AST 61 U/L (15-37); BLOOD UREA NITROGEN,BUN 11 mg/dL (7-18); CALCIUM 8.4 mg/dL (8.5-10.1); CARBON DIOXIDE,CO2 29 mmol/L (21-32); CHLORIDE,CL 105 mmol/L (100-108); CREATININE 1.4 mg/dL (0.6-1.0); EST CRCL DRUG DOSING (CG) 36.53 mL/min; ESTIMATED GFR 42 mL/min (>60); GLUCOSE RANDOM 130 mg/dL (74-106); PHOSPHORUS 3.9 mg/dL (2.5-4.9); POTASSIUM,K 4.3 mmol/L (3.6-5.2); PROTEIN TOTAL,TP 5.8 g/dL (6.4-8.2); SODIUM,NA 142 mmol/L (140-148)
[2023-04-26] MEDS: Lactated Ringers 1,000 ML IV SCH ×2 (05:36→20:20)
[2023-04-26] MEDS: Acetaminophen 325 MG Tab PO SCH ×3 (05:43→21:26)
[2023-04-26] MEDS: amLODIPine 5 MG Tab PO SCH (08:26)
[2023-04-26] MEDS: Metoprolol Tartrate 50 MG Tab PO SCH ×2 (08:27→20:07)
[2023-04-26] MEDS: Pravastatin 20 MG Tab PO SCH (08:27)
[2023-04-26] MEDS: Sertraline 50 MG Tab PO SCH (08:28)
[2023-04-26] MEDS ORDERED: Non-Formulary Medication 1 Each (Amlodipine [Norvasc] 2.5 MG Tablet) PO SCH (09:00)
[2023-04-26] MEDS: Insulin Lispro 100 Unit/ML 3 ML KwikPen SUBCUT SCH ×4 (10:04→21:26)
[2023-04-26 15:29] LABS: ANION GAP 10.9 mmol/L (5.0-14.0); CALCIUM 8.4 mg/dL (8.5-10.1); CREATININE 1.5 mg/dL (0.6-1.0); EST CRCL DRUG DOSING (CG) 34.09 mL/min; POTASSIUM,K 3.9 mmol/L (3.6-5.2)
[2023-04-27 04:34] LABS: BASOPHILS ABSOLUTE AUTO 0.04 K/uL (0.00-0.10); BASOPHILS PERCENT AUTO 0.4 % (0.1-1.3); EOSINOPHILS ABSOLUTE AUTO 0.33 K/uL (0.00-0.40); EOSINOPHILS PERCENT AUTO 3.1 % (0.0-5.4); HEMATOCRIT 24.5 % (34.3-46.0); HEMOGLOBIN 8.5 g/dL (11.2-15.5); IMMATURE GRAN ABSOLUTE AUTO 0.05 K/uL (0.00-0.23); IMMATURE GRAN PERCENT AUTO 0.5 % (0.0-0.7); LYMPHOCYTES ABSOLUTE AUTO 4.15 K/uL (0.8-3.3); LYMPHOCYTES PERCENT AUTO 38.6 % (11.4-47.7); MEAN CORPUSCULAR HEMOGLOBIN 31.7 pg (31.6-35.5); MEAN CORPUSCULAR HGB CONC 34.7 g/dL (31.6-35.5); MEAN CORPUSCULAR VOLUME 91.4 fL (81.4-99.0); MONOCYTES ABSOLUTE AUTO 0.81 K/uL (0.20-0.90); MONOCYTES PERCENT AUTO 7.5 % (3.3-12.6); NEUTROPHILS ABSOLUTE AUTO 5.36 K/uL (1.0-7.6); NEUTROPHILS PERCENT AUTO 49.9 % (40.0-78.1); PLATELET COUNT,PLT 233 K/uL (130-375); RED BLOOD CELL COUNT 2.68 M/uL (3.77-5.24); WHITE BLOOD CELL COUNT,WBC 10.7 K/uL (3.2-11.0)
[2023-04-27 05:01] LABS: A/G RATIO 0.9 (1.2-2.2); ALANINE AMINOTRANSFERASE,ALT 54 U/L (12-78); ALBUMIN 2.8 g/dL (3.4-5.0); ALKALINE PHOSPHATASE 40 U/L (46-116); ANION GAP 6.8 mmol/L (5.0-14.0); ASPARTATE AMNIOTRANSFERASE,AST 47 U/L (15-37); BLOOD UREA NITROGEN,BUN 7 mg/dL (7-18); CALCIUM 8.3 mg/dL (8.5-10.1); CARBON DIOXIDE,CO2 30 mmol/L (21-32); CHLORIDE,CL 106 mmol/L (100-108); CREATININE 1.3 mg/dL (0.6-1.0); EST CRCL DRUG DOSING (CG) 39.34 mL/min; ESTIMATED GFR 46 mL/min (>60); GLUCOSE RANDOM 115 mg/dL (74-106); POTASSIUM,K 3.9 mmol/L (3.6-5.2); PROTEIN TOTAL,TP 5.9 g/dL (6.4-8.2); SODIUM,NA 143 mmol/L (140-148)
[2023-04-27] MEDS: Piperacillin/Tazobactam/Dext 3.375 GM in Premix Bag 1 BAG IV SCH ×3 (05:31)
[2023-04-27] MEDS: Acetaminophen 325 MG Tab PO SCH (05:38)
[2023-04-27] MEDS ORDERED: Non-Formulary Medication 1 Each (Lisinopril [Lisinopril] 40 MG Tablet) PO SCH (09:00)
[2023-04-27] MEDS ORDERED: Lisinopril 20 MG Tab PO SCH (09:00)
[2023-04-27] MEDS: Pravastatin 20 MG Tab PO SCH (09:34)
[2023-04-27] MEDS: Metoprolol Tartrate 50 MG Tab PO SCH (09:34)
[2023-04-27] MEDS: amLODIPine 5 MG Tab PO SCH (09:34)
[2023-04-27] MEDS: Sertraline 50 MG Tab PO SCH (09:35)
[2023-04-27 09:36] VITALS: BP 188/81
[2023-04-27] MEDS: Insulin Lispro 100 Unit/ML 3 ML KwikPen SUBCUT SCH (09:36)
[2023-04-27 10:54] VITALS: PULSE 83
== END 2023-04-27 10:37 | disposition home or self-care (01) | DRG 418 ==
LOC: JP.ICU 12:11 → UNDOADMOB 12:11 → JP.ICU 12:11 → OBSVTOIN 12:42 → INTOOBSV 12:42 → UNDODISIN 04-27 10:37 → EDSTATUS 05-22 11:10
PROVIDERS: ADMIT Student in an Organized Health Care Education/Training Program; ATTEND Student in an Organized Health Care Education/Training Program
PROC: 0FT44ZZ Resection of Gallbladder, Percutaneous Endoscopic Approach (ICD-10-PCS; principal; 2023-04-24)
PROC: 8E0W4CZ Robotic Assisted Procedure of Trunk Region, Percutaneous Endoscopic Approach (ICD-10-PCS; 2023-04-24)
DX: K81.0 Acute cholecystitis (principal); D62 Acute posthemorrhagic anemia; N17.9 Acute kidney failure, unspecified; I10 Essential (primary) hypertension; E78.00 Pure hypercholesterolemia, unspecified; E66.9 Obesity, unspecified; F32.A Depression, unspecified; M19.90 Unspecified osteoarthritis, unspecified site; E80.6 Other disorders of bilirubin metabolism; E83.42 Hypomagnesemia; Z96.641 Presence of right artificial hip joint; Z20.822 Contact with and (suspected) exposure to COVID-19; E11.9 Type 2 diabetes mellitus without complications; Z86.73 Personal history of transient ischemic attack (TIA), and cerebral infarction without residual deficits; Z87.891 Personal history of nicotine dependence; Z98.890 Other specified postprocedural states; Z88.8 Allergy status to other drugs, medicaments and biological substances; Z88.5 Allergy status to narcotic agent; Z79.82 Long term (current) use of aspirin; Z79.899 Other long term (current) drug therapy; Z79.84 Long term (current) use of oral hypoglycemic drugs; Z68.34 Body mass index [BMI] 34.0-34.9, adult; Z87.81 Personal history of (healed) traumatic fracture
CPT/HCPCS: 36415; 80048; 80053; 82947; 83690; 83735; 84100; 85025; 85027; 85610; 86850; 86900; 86901; 88304; 93005; 93010; A9270-GY; J1100; J1650; J1815; J2405; J2543; J2704; J2710; J3010; J3475; J3480; J3490; J7120; U0002